=== PATIENT | male | born 1945 | race Two or more races ===

== ENCOUNTER 2019-04-09 12:41 | Outpatient (RCR) | payer MEDICARE, OTHER ==
[~2019-04-09] VITALS: Ht 177.8 cm; Wt 107.0 kg
[2019-04-10] MEDS ORDERED: Lidocaine 4% Top Soln 50ml TOPIC ONE (11:15)
== END 2019-04-12 | disposition home or self-care (01) ==
LOC: WCC 12:41
DX: L03.116 Cellulitis of left lower limb (principal); L97.323 Non-pressure chronic ulcer of left ankle with necrosis of muscle; L97.329 Non-pressure chronic ulcer of left ankle with unspecified severity; E11.9 Type 2 diabetes mellitus without complications; I10 Essential (primary) hypertension; Z79.84 Long term (current) use of oral hypoglycemic drugs
CPT/HCPCS: 11043; 11046; 87070; 87181; 87205

== ENCOUNTER 2019-04-11 12:48 | Outpatient (CLI) | payer MEDICARE, OTHER ==
--- NOTE | 2019-04-11 16:00 | Diagnostic Imaging Report ---
Indication: Leg pain and left lower leg ulcers Technique: Grayscale and duplex images of the bilateral lower extremity arteries. Ankle brachial indices could not be obtained due to wounds on both ankles Comparison: none Findings: On the right, grayscale and duplex images demonstrate patent lower surely arteries. Normal Doppler flow velocities. Waveforms are triphasic or biphasic at all levels, with sharp systolic peaks, including distally.. No focal flow velocity elevation or imaging evidence of occlusion. On the left, Doppler waveforms are triphasic at the level of the groin and superficial femoral artery levels. At the level of popliteal artery, there is site dampening of the systolic peak and waveforms are monophasic. Dorsalis pedis and anterior tibial artery waveforms are monophasic, unchanged from the popliteal level. The posterior tibial artery and peroneal waveforms demonstrate further modulation of the systolic peak. No focal flow velocity elevations. Impression: On the left, monophasic waveforms at and below the left popliteal artery indicate likely significant distal superficial femoral or proximal popliteal artery stenosis. Further modulation of the posterior tibial and peroneal waveforms may indicate disease of these vessels, as well. No evidence of significant peripheral arterial insufficiency on the right
== END 2019-04-11 14:48 | disposition home or self-care (01) ==
LOC: VAS 12:48
DX: M79.605 Pain in left leg (principal); L97.921 Non-pressure chronic ulcer of unspecified part of left lower leg limited to breakdown of skin
CPT/HCPCS: 93925

== ENCOUNTER 2019-04-15 12:33 | Outpatient (CLI) | payer MEDICARE, OTHER ==
--- NOTE | 2019-04-16 13:45 | Diagnostic Imaging Report ---
Indication:Leg pain and swelling Technique: Grayscale and duplex Doppler imaging of the veins in both lower extremities performed in real time utilizing compression and augmentation. Comparison: None Findings: There is reflux demonstrated within the greater saphenous vein bilaterally lasting up to 3 seconds. Duplex Doppler interrogation of the veins in both lower extremity is performed from the common femoral vein to the popliteal vein. Normal venous compressibility demonstrated throughout. No thrombus identified. Waveform analysis shows good respiratory phasicity and augmentation. Incidentally, there was reflux in the deep veins as well lasting up to 3 seconds. IMPRESSION: Positive for significant bilateral greater saphenous vein reflux. No evidence of deep venous thrombosis involving the lower extremities.
== END 2019-04-15 14:33 | disposition home or self-care (01) ==
LOC: VAS 12:33
DX: I87.2 Venous insufficiency (chronic) (peripheral) (principal)
CPT/HCPCS: 93970

== ENCOUNTER 2019-04-16 12:18 | Outpatient (RCR) | payer MEDICARE, OTHER | END 2019-05-13 | disposition home or self-care (01) | LOC: WCC 12:18 | DX: L03.116 Cellulitis of left lower limb (principal); L97.323 Non-pressure chronic ulcer of left ankle with necrosis of muscle; L97.329 Non-pressure chronic ulcer of left ankle with unspecified severity | CPT/HCPCS: 11043; 11046 ==

== ENCOUNTER 2019-04-23 14:12 | Outpatient (CLI) | payer MEDICARE, OTHER ==
--- NOTE | 2019-04-23 16:55 | Diagnostic Imaging Report ---
Indication: Open ulcers on each side of the distal tibia near the ankle Technique: Sagittal, axial, coronal T1 and STIR images obtained of the ankle Comparison: none Findings: Markers jackson location of the wounds and then mid to distal medial mid leg, and the distal lateral leg. There is considerable edema of the subcutaneous fat of the leg, predominantly posteriorly. This does not strongly correlate with the location of the markers, however. At the lateral marker, there is a shallow area of skin indentation indicative of stated ulcer. Only minimal irregularity of the skin is noted at the lateral marker. No focal fluid collections to suggest drainable abscess are evident. No abnormal marrow signal abnormality to suggest osteomyelitis is evident. No evidence of soft tissue gas. Edema is also seen along the dorsum of the foot, best appreciated on the sagittal images. Impression: Subcutaneous soft tissue edema, as described. Given stated clinical history, most likely on the basis of cellulitis, although edema of vasogenic/hemodynamic origin is also possible Negative for evidence of drainable abscess No evidence of osteomyelitis. Shallow medial and lateral skin ulcers
== END 2019-04-23 16:12 | disposition home or self-care (01) ==
LOC: MRI 14:12
DX: L97.329 Non-pressure chronic ulcer of left ankle with unspecified severity (principal); R60.0 Localized edema

== ENCOUNTER 2019-05-14 14:45 | Outpatient (RCR) | payer MEDICARE, OTHER ==
[~2019-05-14] VITALS: Ht 177.8 cm; Wt 107.0 kg
== END 2019-06-12 | disposition home or self-care (01) ==
LOC: WCC 14:45
DX: L03.116 Cellulitis of left lower limb (principal); L97.323 Non-pressure chronic ulcer of left ankle with necrosis of muscle; L97.329 Non-pressure chronic ulcer of left ankle with unspecified severity; Z79.84 Long term (current) use of oral hypoglycemic drugs; I10 Essential (primary) hypertension; E11.9 Type 2 diabetes mellitus without complications
CPT/HCPCS: 11043; 11046; 29580

== ENCOUNTER 2019-06-18 10:59 | Outpatient (RCR) | payer MEDICARE, OTHER ==
[~2019-06-18] VITALS: Ht 177.8 cm; Wt 107.0 kg
== END 2019-07-13 | disposition home or self-care (01) ==
LOC: WCC 10:59
DX: L03.116 Cellulitis of left lower limb (principal); L97.323 Non-pressure chronic ulcer of left ankle with necrosis of muscle; B35.3 Tinea pedis; L97.329 Non-pressure chronic ulcer of left ankle with unspecified severity; Z79.84 Long term (current) use of oral hypoglycemic drugs; I10 Essential (primary) hypertension; E11.9 Type 2 diabetes mellitus without complications
CPT/HCPCS: 29580; G0463